=== PATIENT | female | born 1985 | race African-American/Black ===

== ENCOUNTER 2017-05-04 09:36 | Day surgery (SDC) | payer MEDICARE, MEDICAID ==
[2017-05-04] MEDS ORDERED: Lactated Ringer's 1,000 ML IV SCH (11:30)
[2017-05-04 12:08] VITALS: BP 120/61; TEMP 98.6
[2017-05-04 12:09] VITALS: BMI 51.7
[2017-05-04 12:10] LABS: Amnisure Test No Membranes Rupture (No Rupture)
[2017-05-04 13:09] LABS: Bilirubin Negative (Negative); Blood, Urine Negative (Negative); Glucose, Urine (Dipstick) Negative (Negative); Ketone, Urine Negative (Negative); Nitrite Negative (Negative); Protein, Urine (Dipstick) Negative (Neg-Trace); Urobilinogen 0.2 mg/dL (0.2-1.0)
[2017-05-04 13:12] LABS: Bacteria/HPF None Seen HPF (None Seen); Hyaline Casts/LPF 0-3 HYALINE CAST LPF (0-3 Hyaline); RBC/HPF 0-3 HPF (0-3); Squamous Epithelial 0-3 HPF (0-3); WBC/HPF 0-3 HPF (0-3)
== END 2017-05-04 13:51 | disposition home or self-care (01) ==
LOC: L&D/OP 09:36
PROVIDERS: ATTEND Emergency Medicine
DX: O99.89 Other specified diseases and conditions complicating pregnancy, childbirth and the puerperium (principal); R42 Dizziness and giddiness; R10.9 Unspecified abdominal pain; O30.042 Twin pregnancy, dichorionic/diamniotic, second trimester; M54.9 Dorsalgia, unspecified; D57.3 Sickle-cell trait; E66.01 Morbid (severe) obesity due to excess calories; F32.9 Major depressive disorder, single episode, unspecified; Z3A.24 24 weeks gestation of pregnancy; Z68.43 Body mass index [BMI] 50.0-59.9, adult; Z79.82 Long term (current) use of aspirin; Z79.899 Other long term (current) drug therapy; Z90.89 Acquired absence of other organs; Z98.890 Other specified postprocedural states; Z87.891 Personal history of nicotine dependence
CPT/HCPCS: 76815; 81001; 82731; 84112; 87480; 87510; 87660

== ENCOUNTER 2017-07-03 21:03 | Day surgery (SDC) | payer MEDICARE, MEDICAID ==
[2017-07-03 22:04] VITALS: BP 117/69; TEMP 99.4; BMI 51.7
[2017-07-03] MEDS ORDERED: Lactated Ringer's 1,000 ML IV SCH (22:30)
--- NOTE | 2017-07-03 22:49 | PDOC.LDHP ---
Labor and Delivery H&P Chief complaint: abdominal pain HPI: 32 yo @ 32w5d by 6.4wk US with unknown LMP presents with 1 day history of abdominal pain. Current gestation is di/di twins. She states the pain is worse when she walks and it is constant. She locates the pain to her lower abdomen along her waist line. She does not note the pain moving anywhere. She also notes she has begun having some small contractions. She admits to feeling movement, denies vaginal bleeding or loss of fluid. She states she has had some vomiting and diarrhea. She denies any urinary symptoms at this time. Current gestational age (weeks): 32 (32w5d) Dating criteria: first trimester ultrasound Grav: 3 Para: 1 OB History Details: in first 1st trimester miscarriage in her second . Current complications: gestational diabetes Abnormal US findings: No Past Medical History: Morbid Obesity, Sickle Cell trait, Bipolar depression. Current medications: pre-kristen vitamins, iron, other (Metformin and Aspirin) Previous surgical history: other (Tonsillectomy, Adenoidectomy, Umbilical hernia repair) Social history: none - Physical Exam Vital signs reviewed and normal: yes General: NAD, resting Heart: RRR Lungs: CTAB Abdomen: other (Tenderness to palpation lower abdomen quadrants more on right side than left.) Extremeties: trace edema FHT: category 1 (Baseline 150, Mod Variability, No decels, Acels present.), variability present [place] contractions every: 3-6 minutes - OB Labs Blood type: O RH: positive HIV: negative RPR: negative HEPSAg: negative 1 hour GCT: positive GBS: unknown Urine drug screen: not done Rubella: immune - Assessment 32 yo @ 32w5d with di/di twins presents with 1. Abdominal pain likely secondary to ligament type pain. Will rule out other causes. Will get UA, CBC, CMP, Intermittent monitoring. Fibronectin. 2. High risk : Reviewed [facility] records. Recommend keeping scheduled appointments. 3. Gestational DM: Will check glucose with CMP. Recommend continuing Metformin 4. Morbid Obesity: Counseled on diet and exercise. 5. Anemia in : Check CBC, Recommend continuing iron supplementation. - Plan Plan: observation in L&D <Iban Boateng - Last Filed: 07/03/17 22:58> <Miladys Light - Last Filed: 07/03/17 23:24> Allergies/Adverse Reactions: Allergies Allergy/AdvReac Type Severity Reaction Status Date / Time No Known Allergies Allergy Verified 07/03/17 21:47 Attending Addendum - Attending Addendum I personally evaluated the patient and discussed the management with Dr. Boateng I agree with the History, Examination, Assessment and Plan documented above with any addition or exceptions noted below. 32 yo female at 32.5 wks by 6.4 wk sono with di/di twins presents for evaluation of abdominal pain, nausea, diarrhea, and intermitten contractions. Cat 1 tracing x2. Intermitten contractions on toco x 4. Diarrhea present x2. No vomitting, fever, chills, rash. Positive sick contact at home with URI symptoms. Hector symptoms. Abdominal pain appears to be related to round ligament discomfort. Will rule out UTI due to risk related to recent diarrhea and hx of sickle cell trait. Tylenol for pain. contractions/uterine irritability. Rule out labor. Low suspicion but will workup. IV and PO hydration. Continue to monitor. If no evidence of PTL will discharge to home. fFN -- if positive will proceed with CL. Cervical exam. Gastroenteritis. Appears to be improving. Mild dehydration. No longer having nausea. IV/PO hydration. Check CBC, CMP. ABrayMD <Miladys Light - Last Filed: 07/03/17 23:24>
[2017-07-03 23:30] LABS: Hematocrit 37.2 % (36.0-47.0); Mean Platelet Volume 8.7 fL (7.4-10.4); Red Blood Cell (RBC) Count 4.49 mill/uL (4.20-5.40); White Blood Cell (WBC) Count 10.2 thou/uL (4.8-10.8)
[2017-07-03 23:53] LABS: ALT (SGPT) 13 U/L (8-55); AST (SGOT) 16 U/L (5-34); Alkaline Phosphatase 141 U/L (40-150); Anion Gap 12 mmol/L (10-20); BUN (Urea Nitrogen) 6 mg/dL (7.0-18.7); Bilirubin, Total 0.3 mg/dL (0.2-1.2); Calc. Creatinine Clearance 295 mL/min (70-130); Carbon Dioxide 22 mmol/L (22-29); Chloride 107 mmol/L (98-107); Estimated GFR-MDRD Greater than 90; Globulin 3.6 g/dL (2.4-3.5); Protein, Total 6.9 g/dL (6.0-8.3)
[2017-07-04 00:10] LABS: Bilirubin Negative (Negative); Blood, Urine Negative (Negative); Glucose, Urine (Dipstick) Negative (Negative); Ketone, Urine Negative (Negative); Nitrite Negative (Negative); Protein, Urine (Dipstick) Negative (Neg-Trace); Urobilinogen 0.2 mg/dL (0.2-1.0)
[2017-07-04 00:12] LABS: Bacteria/HPF Rare-Few HPF (None Seen); Hyaline Casts/LPF 0-3 HYALINE CAST LPF (0-3 Hyaline); RBC/HPF 0-3 HPF (0-3); WBC/HPF 0-3 HPF (0-3)
--- NOTE | 2017-07-04 00:31 | PDOC.EVN ---
Event Note - Event Note Event Note: S: 32 yo @ 32w5d with di/di twins presents for abdominal pain. O: Gen: No acute distress CV: RRR, no murmurs Resp: CTA-BL Abdomen: Gravid, Slightly tender to palpation in lower abdominal quadrants SVE: 1 / Thick / High A/P: 1. , not in labor: Recommend keeping scheduled appointments. Counseled on signs and symptoms of labor. Patient will be discharged home with instructions of when to return. 2. Ligament pain: Recommend Tylenol for this pain as well as staying well hydrated. Activity as tolerated. <Iban Boateng - Last Filed: 07/04/17 00:27> Attending Addendum - Attending Addendum I personally evaluated the patient and discussed the management with Dr. [] I agree with the History, Examination, Assessment and Plan documented above with any addition or exceptions noted below. 32 yo female at 32.5 wks by 6.4 wk sono with di/di twins presents for evaluation of abdominal pain, nausea, diarrhea, and intermittent contractions. Cat 1 tracing x2. Abdominal pain appears to be related to round ligament discomfort. Tylenol for pain. UA negative. contractions/uterine irritability - resolved quickly with PO hydration. Labs WNL. UA negative. fFN negative. SVE closed. Gastroenteritis. Appears to be improving. Mild dehydration - improved. No longer having nausea. Labs WNL. Follow up with PCP in AM. Freddy <Miladys Light - Last Filed: 07/04/17 02:37>
== END 2017-07-04 00:45 | disposition home or self-care (01) ==
LOC: L&D/OP 21:03
PROVIDERS: ATTEND Student in an Organized Health Care Education/Training Program
DX: O26.893 Other specified pregnancy related conditions, third trimester (principal); R10.2 Pelvic and perineal pain; R10.9 Unspecified abdominal pain; O30.003 Twin pregnancy, unspecified number of placenta and unspecified number of amniotic sacs, third trimester; O24.419 Gestational diabetes mellitus in pregnancy, unspecified control; O99.213 Obesity complicating pregnancy, third trimester; E66.01 Morbid (severe) obesity due to excess calories; Z68.43 Body mass index [BMI] 50.0-59.9, adult; Z79.84 Long term (current) use of oral hypoglycemic drugs; Z79.899 Other long term (current) drug therapy; Z3A.32 32 weeks gestation of pregnancy; Z87.891 Personal history of nicotine dependence
CPT/HCPCS: 36415; 80053; 81001; 82731; 85027; 87086